=== PATIENT | female | born 1980 | race Caucasian/White ===

== ENCOUNTER → 2018-10-06 07:18 | Outpatient (CLI) | payer BC, SELFPAY ==
--- NOTE | 2018-10-06 07:21 | BI_ITS ---
MAMMOGRAPHY - BILATERAL SCREENING REASON FOR EXAM: Female, 38 years old. Routine annual screening examination. PERTINENT HISTORY: Non-contributory. TECHNIQUE: Digital bilateral breast chapin (3D mammographic acquisition) in the CC and MLO projections. 2-D mediolateral oblique (MLO) and craniocaudad (CC) views of both breasts were obtained. CAD: Full Field Digital Mammography with Computer Added Detection was performed. COMPARISON: None. Baseline examination. FINDINGS: Breast Composition: The breasts are almost entirely fatty. There are no dominant masses or suspicious calcifications. Small bilateral benign appearing axillary lymph nodes. No other significant abnormalities are identified. BI/SCREENING MAMM (CAD), BILAT IMPRESSION: Negative screening mammogram. Yearly followup mammogram recommended. (A) ASSESSMENT CATEGORY: BIRADS Category 2: Benign. A letter regarding these results will be sent to the patient by the facility within 30 days. Approximately 10% of breast cancers are not detected by mammography. A normal mammogram should not delay biopsy of a clinically suspicious abnormality. [id number] Electronically Signed: Jung Benitez, at 9:08 EDT , Service support ,
== END ==
PROVIDERS: Family Provider Family Medicine; PCP Family Medicine; Referring Provider Nurse Practitioner Adult Health; Visit Provider Nurse Practitioner Adult Health
DX: Z12.31 Encounter for screening mammogram for malignant neoplasm of breast (principal)
CPT/HCPCS: 77063; 77067

== ENCOUNTER → 2019-01-04 09:28 | Outpatient (CLI) | payer BC, SELFPAY ==
[2019-01-04 12:16] LABS: Anion Gap 8 (5-15); BUN 15 mg/dL (7-18); BUN/Creat Ratio 20.3 RATIO (10-20); Calcium,Total 8.6 mg/dL (8.5-10.1); Chloride 105 mmol/L (98-107); Creatinine, Serum 0.74 mg/dL (0.55-1.02); EST Glomerular Filtration Rate 92 mL/min (>60); Est Glom Filt Rate - Afr Amer 112 mL/min (>60); Glucose 138 mg/dL (74-106); Potassium 4.8 mmol/L (3.5-5.1); Sodium Level 141 mmol/L (136-145)
== END ==
PROVIDERS: Family Provider Family Medicine; PCP Family Medicine; Referring Provider Family Medicine; Visit Provider Nurse Practitioner Adult Health
DX: E11.9 Type 2 diabetes mellitus without complications (principal)
CPT/HCPCS: 36415; 80048; 83036

== ENCOUNTER → 2019-02-09 | Outpatient (CLI) | payer BC, SELFPAY ==
[2019-02-09 10:40] LABS: Anion Gap 6 (5-15); BUN 13 mg/dL (7-18); BUN/Creat Ratio 16.1 RATIO (10-20); Calcium,Total 8.9 mg/dL (8.5-10.1); Chloride 105 mmol/L (98-107); Cholesterol 197 mg/dL (200); Creatinine, Serum 0.81 mg/dL (0.55-1.02); EST Glomerular Filtration Rate 83 mL/min (>60); Est Glom Filt Rate - Afr Amer 101 mL/min (>60); Glucose 161 mg/dL (74-106); High Density Lipoprotein 37 mg/dL; Potassium 4.9 mmol/L (3.5-5.1); Sodium Level 136 mmol/L (136-145); Triglycerides 151 mg/dL; Very Low Density Lipoprotein 30 mg/dL (5-40)
[2019-02-09 11:24] LABS: Microalbumin,Random Urine < 5.0 mg/L (NO RANGE EST.)
== END | disposition home or self-care (01) ==
LOC: MFPLAB 08:32
PROVIDERS: Family Provider Family Medicine; PCP Family Medicine; Referring Provider Family Medicine; Visit Provider Family Medicine
DX: E11.9 Type 2 diabetes mellitus without complications (principal)
CPT/HCPCS: 36415; 80048; 80061; 82043; 82570

== ENCOUNTER 2020-01-15 08:41 | Emergency (ER) | payer BC, SELFPAY ==
[2020-01-15 08:43] VITALS: BP 143/89; PULSE 79; RESP 16; TEMP 36.1; O2SAT 98; BMI 54.9
--- NOTE | 2020-01-15 09:33 | ED.VIS.BACK ---
History of Present Illness Chief Complaint: Back Informant: Patient Onset: Days Context: Sudden Onset Injury: - - There is no history of lifting, bending, twisting, fall prior to onset of pain. Timing: Continuous Quality: Dull, Aching Location: Lumbar, Buttock Current Severity: Moderate Maximum Severity: Severe Worsened by: improves with: Movement, Ambulation, Bending, Lifting Relieved by: Nothing Associated Symptoms: - - She denies bowel bladder dysfunction. She denies saddle paresthesia or anesthesia. She denies foot drop. She denies buckling of her knee going up the steps into her residence. There is no radicular pain. The pain is located left lower back and left buttocks. Narrative: Patient is a 39-year-old woman who presents with atraumatic acute left back pain. Movement makes the pain worse. There is no neuro vascular symptoms. Patient is in tears. She states she took ibuprofen at 0400. She has not taken Tylenol in several days. She has no known history of back problems. Prior similar symptoms: No Recent Illness/Hospitalization: No - Past Medical History (1) No significant past medical history Status: Acute Past Medical History - Allergies and Home Meds Allergies/Adverse Reactions: Allergies No Known Allergies Allergy (Verified 01/15/20 08:42) Primary Care Physician: Bryan Evans MD [Primary Care Provider] - Prior records reviewed: No - BMI 54.9. Lives: With Family - She states she lives with her parents. Smoking Status: Never smoker Alcohol: None Drugs: None Review of Systems General: Denies: Chills, Fever, Sweats Eyes: Denies: Visual changes - bilaterally, Blurred Vision - bilaterally ENT: Denies: Rhinorrhea, Sore throat Cardiovascular: Denies: Chest pain, Palpitations Respiratory: Denies: Dyspnea, Cough, Dyspnea on exertion Gastrointestinal: Denies: Abdominal pain, Nausea, Vomiting, Diarrhea, Melena, Hematochezia Genitourinary: Denies: Dysuria, Hematuria, Frequency Musculoskeletal: Reports: Back pain. Denies: Myalgias, Arthralgias, Neck pain, Swelling, Extremity Pain Skin: Denies: Rash, Abrasions, Wounds Neurological: Denies: Headache, Weakness, Numbness Endocrine: Denies: Polyuria, Polydipsia Hematologic: Denies: Easy bruising, Easy bleeding Physical Exam Vital Signs/Narrative: Vital Signs Temp Pulse Resp BP Pulse Ox 07/12/20 08:43 96.9 F L 79 16 143/89 H 98 Inital Vital Signs reviewed: Yes General: Well nourished, Well developed, Obese Head: Normocephalic, Atraumatic Eyes: Perrl, EOMI. Negative for: Pale conjunctiva, Scleral icterus ENT: Negative for: Moist mucous membranes, No rhinorrhea Neck: Supple, Nontender. Negative for: No lymphadenopathy, No JVD Cardiovascular: Regular rate, Regular rhythm, No murmurs, Normal S1, Normal S2 Respiratory: No distress, CTA bilaterally, Chest nontender Abdomen: Soft, Nontender, Nondistended, Normal bowel sounds Rectal: Deferred Back: Normal Inspection, Paraspinal Tenderness, Negative SLR - Right, Negative SLR - Left. Negative for: Nontender, Surgical Scar, Well-Healed, Spinal tenderness, CVA tenderness Extremeties: Nontender, No edema, Strong Pulses, Symmetric. Negative for: Tenderness, Edema Skin: Normal color, No rash, No Trauma. Negative for: Cyanosis, Diaphoresis, Jaundice Neuro: Alert, Oriented, Normal Strength, Normal Sensation, Normal DTR, Normal Reflexes, - - EHL is intact bilaterally. Normal sensation. Reflexes: Right Patellar, Right Achilles, Left Patellar, Left Achilles, - - Reflexes 1+ and symmetric.. Negative for: Right Clonus, Right Babinski, Left Clonus, Left Babinski Psychological: Tearful Diagnostic/Tx/Re-eval - Medical Decision Making Suspect musculoskeletal back pain. There is no radicular pain. Negative straight leg test. No neuro logic deficit. Once pain is under better control will observe patient's ambulation, walking on heels and toes and 1 legged squat. Patient was reassessed at 1050. She is able to stand up. She is able to walk. There is no foot drop. She is able to walk on heels and toes. She is able to perform 1 legged squat on the right side and the left side. Patient was observed ambulating from room 9 to the restroom. Patient is no longer crying. Pain has reduced markedly. ED Disposition - Plan for ED Patient: Disposition: Home or Assisted Living Diagnosis: Left-sided low back pain without sciatica Instructions: ED Back Pain Acute or Chronic Prescriptions: Naproxen [Naprosyn] 500 mg PO BID #14 tab Transmission Status: Pending to [id number] Hydrocodone Bitart/Apap 5-325 [[place] 5MG-325MG] 1 tablet PO Q6H PRN PRN 3 Days #10 tablet PRN Reason: Pain Transmission Status: Received by [id number] Referrals: Bryna Evans MD [Primary Care Provider] - As soon as possible
[2020-01-15] MEDS: Ketorolac 15 MG/ML Vial IV (09:41)
[2020-01-15] MEDS: Ondansetron 4 MG/2 ML Vial IV (09:41)
[2020-01-15] MEDS: morphine 8 MG/ML Syringe IV (09:41)
== END 2020-01-15 11:21 | disposition home or self-care (01) ==
PROVIDERS: Emergency Provider Emergency Medicine; PCP Family Medicine
DX: M54.5 Low back pain (principal); E66.9 Obesity, unspecified; Z68.43 Body mass index [BMI] 50.0-59.9, adult
CPT/HCPCS: 96374; 96375; 99282; A4216; J2405

== ENCOUNTER → 2020-01-18 11:43 | Outpatient (CLI) | payer BC, SELFPAY ==
[2020-01-15 08:43] VITALS: BMI 54.9
--- NOTE | 2020-01-18 11:46 | RAD_ITS ---
STUDY: X-RAY - PELVIS AND BILATERAL HIPS REASON FOR EXAM: Female, 39 years old. BILATERAL HIP PAIN, WORSE ON LEFT, NO INJURY TECHNIQUE: AP view of the pelvis.? 2 views of the right hip, and 2 views of the left hip were obtained. COMPARISON: None. FINDINGS: There is a non-specific bowel gas pattern. Normal visualized soft tissue structures. Normal bilateral iliac wings, sacroiliac joints and visualized sacrum. Normal bilateral superior and inferior pubic rami. Normal pubic symphysis. Normal bilateral ischial tuberosities. Normal visualized right femoral head. Normal right acetabulum. Normal right hip joint. Normal visualized left femoral head. Normal left acetabulum. Normal left hip joint. RAD/Hips B/L min 2 views w/ Pelvis IMPRESSION: Normal x-ray examination of the pelvis and bilateral hips. Electronically Signed: Eric Lazo MD at 12:11 EDT , Service support ,
== END ==
PROVIDERS: PCP Family Medicine; Referring Provider Family Medicine; Visit Provider Family Medicine
DX: M25.552 Pain in left hip (principal)
CPT/HCPCS: 73521

== ENCOUNTER → 2020-02-07 07:32 | Outpatient (CLI) | payer BC, SELFPAY ==
[2020-01-15 08:43] VITALS: BMI 54.9
[2020-02-07 10:51] LABS: Anion Gap 4 (5-15); BUN 14 mg/dL (7-18); BUN/Creat Ratio 19.4 RATIO (10-20); Calcium,Total 8.7 mg/dL (8.5-10.1); Chloride 107 mmol/L (98-107); Cholesterol 184 mg/dL (200); Creatinine, Serum 0.72 mg/dL (0.55-1.02); EST Glomerular Filtration Rate 94 mL/min (>60); Est Glom Filt Rate - Afr Amer 114 mL/min (>60); Glucose 124 mg/dL (74-106); High Density Lipoprotein 32 mg/dL; Potassium 4.1 mmol/L (3.5-5.1); Sodium Level 139 mmol/L (136-145); Triglycerides 182 mg/dL; Very Low Density Lipoprotein 36 mg/dL (5-40)
== END ==
PROVIDERS: PCP Family Medicine; Referring Provider Family Medicine; Visit Provider Family Medicine
DX: E11.9 Type 2 diabetes mellitus without complications (principal)
CPT/HCPCS: 36415; 80048; 80061

== ENCOUNTER → 2020-07-30 13:53 | Outpatient (CLI) | payer BC, SELFPAY ==
[2020-08-03 14:23] LABS: HPV Reflexed? NOT INDICATED
== END ==
PROVIDERS: PCP Family Medicine; Visit Provider Nurse Practitioner Adult Health
DX: Z01.419 Encounter for gynecological examination (general) (routine) without abnormal findings (principal)
CPT/HCPCS: 88175; G0145

== ENCOUNTER → 2020-08-08 07:02 | Outpatient (CLI) | payer BC, SELFPAY ==
--- NOTE | 2020-08-08 07:05 | BI_ITS ---
MAMMOGRAPHY - BILATERAL SCREENING REASON FOR EXAM: Female, 39 years old. Routine annual screening examination. PERTINENT HISTORY: Non-contributory. TECHNIQUE: Digital bilateral breast chapin (3D mammographic acquisition) in the CC and MLO projections. 2-D mediolateral oblique (MLO) and craniocaudad (CC) views of both breasts were obtained. CAD: Full Field Digital Mammography with Computer Added Detection was performed. COMPARISON: Comparison is made with prior study dated 10/06/2018. FINDINGS: Breast Composition: The breasts are almost entirely fatty. There are no dominant masses or suspicious calcifications. Stable small benign appearing bilateral axillary lymph nodes. No other significant abnormalities are identified. There has been no significant change since the prior study. BI/SCREENING MAMM (CAD), BILAT IMPRESSION: Stable bilateral screening mammogram. Yearly follow-up mammogram recommended. (A) ASSESSMENT CATEGORY: BIRADS Category 2: Benign. A letter regarding these results will be sent to the patient by the facility within 30 days. Approximately 10% of breast cancers are not detected by mammography. A normal mammogram should not delay biopsy of a clinically suspicious abnormality. [id number] Electronically Signed: Jung Benitez MD at 8:47 EST , Service support ,
== END ==
PROVIDERS: PCP Family Medicine; Referring Provider Nurse Practitioner Adult Health; Visit Provider Nurse Practitioner Adult Health
DX: Z12.31 Encounter for screening mammogram for malignant neoplasm of breast (principal)
CPT/HCPCS: 77067

== ENCOUNTER → 2021-01-10 09:18 | Outpatient (CLI) | payer BC, SELFPAY ==
[2021-01-10 10:28] LABS: Vitamin D,25 Hydroxy 20.2 ng/mL
[2021-01-10 10:30] LABS: Anion Gap 6 (5-15); BUN 13 mg/dL (7-18); BUN/Creat Ratio 17.7 RATIO (10-20); Calcium,Total 9.2 mg/dL (8.5-10.1); Chloride 102 mmol/L (98-107); Cholesterol 129 mg/dL (200); Creatinine, Serum 0.74 mg/dL (0.55-1.02); EST Glomerular Filtration Rate 92 mL/min (>60); Est Glom Filt Rate - Afr Amer 111 mL/min (>60); Glucose 142 mg/dL (74-106); High Density Lipoprotein 38 mg/dL; Potassium 4.4 mmol/L (3.5-5.1); Sodium Level 139 mmol/L (136-145); Thyroid Stim Hormone (TSH) 3.33 uIU/mL (0.358-3.74); Triglycerides 158 mg/dL; Very Low Density Lipoprotein 32 mg/dL (5-40)
[2021-01-10 10:37] LABS: Microalbumin,Random Urine < 5.0 mg/L (NO RANGE EST.)
== END ==
PROVIDERS: PCP Family Medicine; Visit Provider Family Medicine
DX: E11.9 Type 2 diabetes mellitus without complications (principal)
CPT/HCPCS: 36415; 80048; 80061; 82043; 82306; 82570; 84443

== ENCOUNTER → 2021-04-17 09:03 | Outpatient (CLI) | payer BC, SELFPAY | PROVIDERS: PCP Family Medicine; Visit Provider Family Medicine | DX: Z03.818 Encounter for observation for suspected exposure to other biological agents ruled out (principal) | CPT/HCPCS: 87635; U0005; U0003 ==

== ENCOUNTER 2021-08-14 08:36 | Outpatient (CLI) | payer BC, SELFPAY ==
--- NOTE | 2021-08-14 08:38 | BI_ITS ---
MAMMOGRAPHY - BILATERAL SCREENING REASON FOR EXAM: Female, 41 years old. Routine annual screening examination. PERTINENT HISTORY: Non-contributory. TECHNIQUE: Digital bilateral breast charissa (3D mammographic acquisition) in the CC and MLO projections. 2-D mediolateral oblique (MLO) and craniocaudad (CC) views of both breasts were obtained. CAD: Full Field Digital Mammography with Computer Added Detection was performed. COMPARISON: Comparison is made with prior study dated 08/08/2020 and 10/06/2018. FINDINGS: Breast Composition: The breasts are almost entirely fatty. There are no dominant masses or suspicious calcifications. Stable small benign-appearing bilateral axillary lymph nodes. No other significant abnormalities are identified. There has been no significant change since the prior study. BI/SCRN MAMM (CAD)W/CHARISSA BILAT IMPRESSION: Stable bilateral screening mammogram. Yearly follow-up mammogram recommended. (A) ASSESSMENT CATEGORY: BIRADS Category 2: Benign. A letter regarding these results will be sent to the patient by the facility within 30 days. Approximately 10% of breast cancers are not detected by mammography. A normal mammogram should not delay biopsy of a clinically suspicious abnormality. [id number] Electronically Signed: Jung Benitez MD at 10:07 EST ,
== END 2021-08-14 23:59 | disposition home or self-care (01) ==
LOC: OPBI 08:37
PROVIDERS: PCP Family Medicine; Referring Provider Family Medicine; Visit Provider Family Medicine
DX: Z12.31 Encounter for screening mammogram for malignant neoplasm of breast (principal)
CPT/HCPCS: 77063; 77067

== ENCOUNTER → 2022-02-10 | Outpatient (CLI) | payer BC, SELFPAY ==
[2022-02-10 10:32] LABS: Microalbumin,Random Urine 7.4 mg/L (NO RANGE EST.); Microalbumin:Creatinine Ratio 5.1 mg/g CRE (<30 mg/g CRE)
[2022-02-10 10:42] LABS: ALB/GLOB Ratio 0.9 RATIO (0.9-2.4); AST(SGOT) 40 U/L (15-37); Alanine Aminotransfer ALT/SGPT 46 U/L (13-56); Albumin, Serum 3.4 g/dL (3.2-5.0); Alkaline Phosphatase 86 U/L (45-117); Anion Gap 5 (5-15); BUN 13 mg/dL (7-18); BUN/Creat Ratio 18.8 RATIO (10-20); Calcium,Total 9.1 mg/dL (8.5-10.1); Chloride 105 mmol/L (98-107); Creatinine, Serum 0.69 mg/dL (0.55-1.02); EST Glomerular Filtration Rate 99 mL/min (>60); Est Glom Filt Rate - Afr Amer 119 mL/min (>60); Globulin 3.8 g/dL (2.2-4.2); Glucose 176 mg/dL (74-106); Potassium 4.2 mmol/L (3.5-5.1); Protein, Total 7.2 g/dL (6.4-8.2); Sodium Level 137 mmol/L (136-145)
== END | disposition home or self-care (01) ==
LOC: MFPLAB 08:33
PROVIDERS: PCP Family Medicine; Visit Provider Family Medicine
DX: E11.9 Type 2 diabetes mellitus without complications (principal)
CPT/HCPCS: 36415; 80053; 82043; 82570

== ENCOUNTER → 2022-08-15 | Outpatient (CLI) | payer BC, SELFPAY ==
[2022-08-15 13:38] LABS: ALB/GLOB Ratio 0.9 RATIO (0.9-2.4); AST(SGOT) 30 U/L (15-37); Alanine Aminotransfer ALT/SGPT 40 U/L (13-56); Albumin, Serum 3.4 g/dL (3.2-5.0); Alkaline Phosphatase 79 U/L (45-117); Anion Gap 7 (5-15); BUN 14 mg/dL (7-18); BUN/Creat Ratio 21.2 RATIO (10-20); Calcium,Total 9.1 mg/dL (8.5-10.1); Chloride 105 mmol/L (98-107); Cholesterol 116 mg/dL (200); Creatinine, Serum 0.66 mg/dL (0.55-1.02); EST Glomerular Filtration Rate 104 mL/min (>60); Est Glom Filt Rate - Afr Amer 125 mL/min (>60); Globulin 3.7 g/dL (2.2-4.2); Glucose 126 mg/dL (74-106); High Density Lipoprotein 39 mg/dL; Potassium 4.3 mmol/L (3.5-5.1); Protein, Total 7.1 g/dL (6.4-8.2); Sodium Level 139 mmol/L (136-145); Triglycerides 144 mg/dL; Very Low Density Lipoprotein 29 mg/dL (5-40)
== END | disposition home or self-care (01) ==
LOC: MFPLAB 10:25
PROVIDERS: PCP Family Medicine; Referring Provider Family Medicine; Visit Provider Family Medicine
DX: E11.9 Type 2 diabetes mellitus without complications (principal)
CPT/HCPCS: 36415; 80053; 80061

== ENCOUNTER → 2022-08-28 | Outpatient (CLI) | payer BC, SELFPAY ==
--- NOTE | 2022-08-28 07:23 | BI_ITS ---
MAMMOGRAPHY - BILATERAL SCREENING REASON FOR EXAM: Female, 42 years old. Routine annual screening examination. PERTINENT HISTORY: Non-contributory. TECHNIQUE: Digital bilateral breast charissa (3D mammographic acquisition) in the CC and MLO projections. 2-D mediolateral oblique (MLO) and craniocaudad (CC) views of both breasts were obtained. CAD: Full Field Digital Mammography with Computer Added Detection was performed. COMPARISON: Comparison is made with prior examination dated 08/14/2021 and 08/08/2020. FINDINGS: Breast Composition: The breasts are almost entirely fatty. There are no dominant masses or suspicious calcifications. Stable small benign-appearing bilateral axillary lymph nodes. No other significant abnormalities are identified. There has been no significant change since the prior study. BI/SCRN MAMM (CAD)W/CHARISSA BILAT IMPRESSION: Stable bilateral screening mammogram. Yearly follow-up mammogram recommended. (A) ASSESSMENT CATEGORY: BIRADS Category 2: Benign. A letter regarding these results will be sent to the patient by the facility within 30 days. Approximately 10% of breast cancers are not detected by mammography. A normal mammogram should not delay biopsy of a clinically suspicious abnormality. [id number] Electronically Signed: Jung Benitez MD at 9:53 EST ,
== END | disposition home or self-care (01) ==
LOC: OPBI 07:22
PROVIDERS: PCP Family Medicine; Referring Provider Nurse Practitioner Family; Visit Provider Nurse Practitioner Family
DX: Z12.31 Encounter for screening mammogram for malignant neoplasm of breast (principal)
CPT/HCPCS: 77063; 77067

== ENCOUNTER → 2023-02-25 | Outpatient (CLI) | payer OTHER, SELFPAY ==
[2023-02-25 11:01] LABS: Anion Gap 4 (5-15); BUN 14 mg/dL (7-18); BUN/Creat Ratio 19.2 RATIO (10-20); Calcium,Total 8.9 mg/dL (8.5-10.1); Chloride 111 mmol/L (98-107); Cholesterol 119 mg/dL (200); Creatinine, Serum 0.73 mg/dL (0.55-1.02); EST Glomerular Filtration Rate 92 mL/min (>60); Est Glom Filt Rate - Afr Amer 112 mL/min (>60); Glucose 118 mg/dL (74-106); High Density Lipoprotein 36 mg/dL; Potassium 4.2 mmol/L (3.5-5.1); Sodium Level 140 mmol/L (136-145); Triglycerides 143 mg/dL; Very Low Density Lipoprotein 29 mg/dL (5-40)
== END | disposition home or self-care (01) ==
LOC: MFPLAB 08:40
PROVIDERS: PCP Family Medicine; Visit Provider Family Medicine
DX: E11.9 Type 2 diabetes mellitus without complications (principal)
CPT/HCPCS: 36415; 80048; 80061

== ENCOUNTER → 2023-07-15 | Outpatient (CLI) | payer OTHER, SELFPAY ==
--- OUTSIDE RECORDS SUMMARY | 2023-07-15 14:36 | XMS RPT_ITS | CCD ---
Author Name Unknown Address [facility] [address] [place] [id number] Organization [facility] Clinical Note 09-14-2020 Note Date & Type Note Facility 09-14-2020 Note Patient Outreach ([facility]) ANGELY TIMMONS ([id number]) 1980 F Date Time Provider Department 09/14/20 KYLIE RUIZ During your visit today, we recorded the following information about you: Allergies As of Date: 09/14/2020 (No Known Allergies) Date Reviewed: 01/15/2020 Reviewed by: Barbara Stuart Ma - Fully Assessed Order(s):SARS-COVID VACCINE 1ST DOSE APPT [[id number]] Order #: [id number] FUTURE Prescriptions as of 09/14/2020 Sig: METFORMIN 1,000 MG TABLET Take 1,000 mg by mouth twice * GLIMEPIRIDE 1 MG TABLET Take 1 mg by mouth once daily. ONETOUCH ULTRA BLUE TEST STRIP ONETOUCH ULTRA2 METER KIT LISINOPRIL 5 MG TABLET Take 1 tablet by mouth once d* ONETOUCH DELICA LANCETS 30 GA* twice daily. METFORMIN 500 MG TABLET Take 1 tablet by mouth twice * JANUMET XR 100 MG-1,000 MG TA* Take 1 tablet by mouth once d* BROMPHENIRAMINE-PSEUDOEPHEDRI* Take 5 mL by mouth three time* Patient not taking: Reported on 01/15/2020 Problem List As Of Date 09/14/2020 Noted Resolved Type 2 diabetes mellitus without complication, *11/09/2018 Encounter Status:Closed by RICKY FISH on 09/17/20 [facility] Summary Purpose Family History No Family History Records Found Advance Directives No Advanced Directives Records Found Additional Source Comments INFORMATION SOURCE (unrecogn ized section and content) FOR RECORDS PERTAINING TO PATIENTS WHO ARE OR HAVE BEEN ENROLLED IN A CHEMICAL DEPENDENCY/SUBSTANCEABUSE PROGRAM, SOME INFORMATION MAY BE OMITTED. This clinical summary was aggregated from multiple sources. Caution should be exercised in using it in the provision of clinical care. This summary normalizes information from multiple sources, and as a consequence, information in this document may materially change the coding, format and clinical context of patient data. In addition, data may be omitted in some cases. CLINICAL DECISIONS SHOULD BE BASED ON THE PRIMARY CLINICAL RECORDS. [employer] [facility]. provides no warranty or guarantee of the accuracy or completeness of information in this document.
[2023-07-20 19:08] LABS: HPV APTIMA, High Risk Negative (Negative)
[2023-07-20 20:03] LABS: HPV Reflexed? YES, CHARGE PATIENT
== END | disposition home or self-care (01) ==
LOC: LABSPEC 14:11
PROVIDERS: PCP Family Medicine; Visit Provider Nurse Practitioner Family
DX: Z00.00 Encounter for general adult medical examination without abnormal findings (principal)
CPT/HCPCS: 87624; 88175; G0145

== ENCOUNTER → 2023-08-12 | Outpatient (CLI) | payer OTHER, SELFPAY ==
[2023-08-12 11:36] LABS: Anion Gap 3 (5-15); BUN 14 mg/dL (7-18); BUN/Creat Ratio 17.5 RATIO (10-20); Calcium,Total 8.8 mg/dL (8.5-10.1); Chloride 110 mmol/L (98-107); Cholesterol 130 mg/dL (200); EST Glomerular Filtration Rate 82 mL/min (>60); Est Glom Filt Rate - Afr Amer 100 mL/min (>60); Glucose 116 mg/dL (74-106); High Density Lipoprotein 39 mg/dL; Potassium 4.4 mmol/L (3.5-5.1); Sodium Level 136 mmol/L (136-145); Triglycerides 125 mg/dL; Very Low Density Lipoprotein 25 mg/dL (5-40)
[2023-08-12 12:12] LABS: Microalbumin,Random Urine < 5.0 mg/L (NO RANGE EST.)
== END | disposition home or self-care (01) ==
LOC: MFPLAB 08:23
PROVIDERS: PCP Family Medicine; Visit Provider Family Medicine
DX: E11.9 Type 2 diabetes mellitus without complications (principal)
CPT/HCPCS: 36415; 80048; 80061; 82043; 82570

== ENCOUNTER → 2023-08-17 | Outpatient (CLI) | payer OTHER, SELFPAY ==
--- OUTSIDE RECORDS SUMMARY | 2023-08-17 07:54 | XMS RPT_ITS | CCD ---
Author Name Unknown Address [facility] [employer] [facility] [address] [place] [id number] Organization [facility] Clinical Note 09-14-2020 Note Date & Type Note Facility 09-14-2020 Note Patient Outreach ([facility]) ANGELY TIMMONS ([id number]) 1980 F Date Time Provider Department 09/14/20 KYLIE RUIZ During your visit today, we recorded the following information about you: Allergies As of Date: 09/14/2020 (No Known Allergies) Date Reviewed: 01/15/2020 Reviewed by: Barbara Stuart Ma - Fully Assessed Order(s):SARS-COVID VACCINE 1ST DOSE APPT [[id number]] Order #: [id number] FUTURE Prescriptions as of 09/14/2020 Sig: METFORMIN [...] Encounter Status:Closed by RICKY FISH on 09/17/20 [facility] Summary Purpose Family History No Family History [...] BE BASED ON THE PRIMARY CLINICAL RECORDS. [employer] [facility]. provides no warranty or guarantee of the accuracy or completeness of information in this document.
--- NOTE | 2023-08-17 07:57 | US_ITS ---
STUDY: ULTRASOUND OF THE FEMALE PELVIS - COMPLETE REASON FOR EXAM: Female, 43 years old. Cervical polyp LMP: April 24, 2024 TECHNIQUE: Transabdominal and Transvaginal TECHNICAL QUALITY: Adequate. COMPARISON: None. FINDINGS: The uterus is anteverted and is in a midline position. The uterus measures 8.1 cm x 3.8 cm x 3.5 cm. Normal uterine cervix. The endometrium measures 8.9 mm in thickness, and is heterogeneous (striated). I suspect an 8 mm x 9 mm x 8 mm cervical polyp. There is no demonstrated endometrial mass. There is no demonstrated myometrial mass. I.U.D. - The patient does not have an I.U.D. The right ovary is non-visualized. The left ovary is non-visualized. There is no fluid in the cul-de-sac. The pre void volume of the bladder was 86 ml. US/Transvaginal Non- IMPRESSION: Findings suggestive of a 8 mm x 9 mm x 8 mm cervical polyp. Electronically Signed: Jung Benitez MD at 12:14 EST ,
== END | disposition home or self-care (01) ==
PROVIDERS: PCP Family Medicine; Referring Provider Obstetrics & Gynecology; Visit Provider Obstetrics & Gynecology
DX: N84.1 Polyp of cervix uteri (principal)
CPT/HCPCS: 76830; 76856

== ENCOUNTER → 2023-08-31 | Outpatient (CLI) | payer OTHER, SELFPAY ==
--- NOTE | 2023-08-31 07:06 | BI_ITS ---
MAMMOGRAPHY - BILATERAL SCREENING REASON FOR EXAM: Female, 43 years old. Routine annual screening examination. PERTINENT HISTORY: Non-contributory. Initial remote right breast aspiration. TECHNIQUE: Digital bilateral breast charissa (3D mammographic acquisition) in the CC and MLO projections. 2-D mediolateral oblique (MLO) and craniocaudad (CC) views of both breasts were obtained. CAD: Full Field Digital Mammography with Computer Added Detection was performed. COMPARISON: Comparison is made with prior study August 28, 2022 and August 14, 2021. FINDINGS: Breast Composition: The breasts are almost entirely fatty. There are no dominant masses or suspicious calcifications. Stable small benign-appearing bilateral axillary lymph nodes. No other significant abnormalities are identified. There has been no significant change since the prior study. BI/SCRN MAMM (CAD)W/CHARISSA BILAT IMPRESSION: Stable bilateral screening mammogram. Yearly follow-up mammogram recommended. (A) ASSESSMENT CATEGORY: BIRADS Category 2: Benign. A letter regarding these results will be sent to the patient by the facility within 30 days. Approximately 10% of breast cancers are not detected by mammography. A normal mammogram should not delay biopsy of a clinically suspicious abnormality. [id number] Electronically Signed: Jung Benitez MD at 8:56 EST ,
--- OUTSIDE RECORDS SUMMARY | 2023-08-31 07:22 | XMS RPT_ITS | CCD ---
Author Name Unknown Address [facility] [employer] [facility] [address] [place] [id number] Organization [facility] Clinical Note 09-14-2020 Note Date & Type Note Facility 09-14-2020 Note Patient Outreach ([facility]) ANGELY TIMMONS ([id number]) 1980 F Date Time Provider Department 09/14/20 KYLIE RUIZ During your visit today, we recorded the following information about you: Allergies As of Date: 09/14/2020 (No Known Allergies) Date Reviewed: 01/15/2020 Reviewed by: Barbara Stuart Ma - Fully Assessed Order(s):SARS-COVID VACCINE 1ST DOSE APPT [[id number]] Order #: [id number] FUTURE Prescriptions as of 09/14/2020 Sig: METFORMIN [...] Encounter Status:Closed by RICKY FISH on 09/17/20 [facility] Summary Purpose Family History No Family History [...] BE BASED ON THE PRIMARY CLINICAL RECORDS. [employer] [facility]. provides no warranty or guarantee of the accuracy or completeness of information in this document.
== END | disposition home or self-care (01) ==
LOC: OPBI 07:06
PROVIDERS: PCP Family Medicine; Referring Provider Nurse Practitioner Family; Visit Provider Nurse Practitioner Family
DX: Z12.31 Encounter for screening mammogram for malignant neoplasm of breast (principal)
CPT/HCPCS: 77063; 77067

== ENCOUNTER 2023-09-01 07:09 | Day surgery (SDC) | payer OTHER, SELFPAY ==
[2023-08-24 15:32] LABS: Hematocrit 41.4 % (37-47); Hemoglobin 13.5 g/dL (12.0-15.0); Mean Corp Hgb Conc 32.6 g/dL (32-36); Mean Corpuscular Hgb 28.5 pg (27.0-32.0); Mean Corpuscular Volume 87.5 fL (81-99); Platelet Count 255 K/mm3 (150-450); RBC Distribution Width CV 13.3 % (11.6-14.6); RBC Distribution Width SD 42.5 fl (35.1-43.9); Red Blood Count 4.73 M/mm3 (4.2-5.4); White Blood Count 9.6 K/mm3 (4.4-11.0)
--- OUTSIDE RECORDS SUMMARY | 2023-09-01 07:23 | XMS RPT_ITS | CCD ---
Author Name Unknown Address [facility] [employer] [facility] [address] [place] [id number] Organization [facility] Clinical Note 09-14-2020 Note Date & Type Note Facility 09-14-2020 Note Patient Outreach ([facility]) ANGELY TIMMONS ([id number]) 1980 F Date Time Provider Department 09/14/20 KYLIE RUIZ During your visit today, we recorded the following information about you: Allergies As of Date: 09/14/2020 (No Known Allergies) Date Reviewed: 01/15/2020 Reviewed by: Barbara Stuart Ma - Fully Assessed Order(s):SARS-COVID VACCINE 1ST DOSE APPT [[id number]] Order #: [id number] FUTURE Prescriptions as of 09/14/2020 Sig: METFORMIN [...] Encounter Status:Closed by RICKY FISH on 09/17/20 [facility] Summary Purpose Family History No Family [...] BE BASED ON THE PRIMARY CLINICAL RECORDS. [employer] [facility]. provides no warranty or guarantee of the accuracy or completeness of information in this document.
--- NOTE | 2023-09-01 07:26 | PCM.HP.BLA ---
History and Physical Date of Admission: 09/01/23 Intake Vital Signs 01/15/2008:43 08/10/2409:37 Height 5 ft 4 in 5 ft 4 in Weight: 316 lb 6 oz BMI 54.3 BP 148/82 H Intake Visit Reasons: polyp options, ref by [facility] [employer] Required: No Is patient in pain?: No Allergies No Known Allergies Allergy (Verified 08/10/23 10:49) Medications glimepiride 1 mg tablet 1 mg PO DAILY 01/15/20 [History Confirmed 08/10/23] lisinopril 5 mg tablet 5 mg PO DAILY 01/15/20 [History Confirmed 08/10/23] naproxen 500 mg tablet 500 mg PO BID #14 tabs 01/15/20 [Rx Confirmed 08/10/23] cholecalciferol (vitamin D3) 50 mcg (2,000 unit) capsule 50 mcg PO DAILY 08/10/23 [History Confirmed 08/10/23] metformin 1,000 mg tablet 1,000 mg PO DAILY 08/10/23 [History Confirmed 08/10/23] rosuvastatin 5 mg tablet (Crestor) 5 mg PO DAILY 08/10/23 [History Confirmed 08/10/23] Post menopausal: No Patient : No : No [facility] Medical History (Updated 08/10/23 @ 17:[address] Wendy Keating DO) Chronic back pain Diabetes Hyperlipidemia Hypertension Surgical History (Updated 08/10/23 @ 10:52 by Yolanda Srinivasan) History of ankle surgery Family History (Updated 08/10/23 @ 10:53 by Yolanda Srinivasan) Father Heart disease CVA (cerebral vascular accident)Mother Diabetes Thyroid disorder Uterine cancer Social History (Updated 08/10/23 @ 10:53 by Yolanda Srinivasan) Smoking Status: Never smoker alcohol intake: never substance use type: does not use caffeine: Yes what type of physical activity do you participate in: walking frequency: 3-4 times per week seatbelt use: always do you feel safe at home: Yes additional social history: Single HPI polyp options, ref by [facility] Details: ANGELY TIMMONS is a 42 year old who presents to [facility] for a polyp that was found incidentally by her pcp on her cx. pap was benign. She denies abnormal periods (more than usual) her mom from uterine cancer, likely uterine sarcoma based on her description. She states that she will find out for sure. Today she is scheduled for hysteroscopy D&C with polypectomy. History 0 Elective abortions Hx Para Spontaneous abortions Hx # Term Pregnancies Ectopic pregnancies Hx # Pregnancies Multiple births # of living children ROS Const ROS Unobtainable: All systems reviewed & are unremarkable except as noted in H Resp Resp: Reports system reviewed and no additional complaints, except as documented; Denies cough GI GI: Reports as per HPI Psych Psych: Reports system reviewed and no additional complaints, except as documented Exam Const General: cooperative, healthy appearing, comfortable and no acute distress Resp Effort & Inspection: normal respiratory effort General: bimanual renal exam normal bilaterally External Female Exam: normal appearance of the urethra Urethra: normal appearance of the urethra Speculum Exam - Vagina: normal appearance of the vagina Speculum Exam - Cervix: normal appearance of the cervix Bimanual Exam- Adnexa, other: normal adnexae and normal Pelvic Support: normal Speculum Exam: other (small endocervical polyp protruding from cervix. ) Skin General: no rashes or lesions noted Psych Appearance: grossly normal Speech and Movement: speech and movement normal Coding Level of Care Code Off vis,new,level 4 Diagnoses Polyp of cervix N84.1 Assessment and Plan Assessment and Plan (1) Polyp of cervix: Status: Acute Plan: plan for hysteroscopy D&C polypectomy. After discussing the patient's diagnosis and treatment plan options, patient wishes to proceed with surgical management. I have discussed with the patient the risks, benefits, and alternatives of the procedure which include but are not limited to risks of anesthesia, bleeding, infection, possible damage to bowel, bladder, or surrounding vasculature which could lead to additional surgery to evaluate any complications. Patient agrees to procedure and wishes to proceed. ACOG/uptodate references given for additional information regarding procedure.
[2023-09-01 07:38] VITALS: BP 129/79; PULSE 106; RESP 16; TEMP 37; O2SAT 100; BMI 52.4
[2023-09-01] MEDS: Lactated Ringers 1,000 ML 15 ML IV (07:44)
[2023-09-01 07:47] LABS: Internal QC Validated? YES +Cl - CLEAR BKGD; Pregnancy, Urine Negative Negative
[2023-09-01 08:10] LABS: Bedside Glucose 122 mg/dL (74-106)
--- NOTE | 2023-09-01 08:27 | DCINST_ITS ---
Discharge Instructions Diet Discharge Diet: No restrictions Activity Discharge Activity: Return to Normal Activity, May Shower and May Take a Tub Bath (after 1 week) May resume sexual activity in: 1-2 weeks Weight Bearing Status: Weight bearing as tolerated Lifting Restrictions: none Additional Activity Instructions:: take over the counter Motrin, aleve, and or tylenol as needed for cramping. Dressing / Incision Call your doctor if you observe: Fever of 101 or Higher, Using more than 1 pad per hour, Shortness of breath and Uncontrolled pain Follow Up Care Please Follow Up With: Wendy Keating DO When: Call [phone] to schedule appointment. Test Results: Test results from this visit will be discussed in further detail at your follow- up appointment. Discharge Plan Admission Attending Provider: Wendy Keating Primary Care Provider: Bryan Evans Discharge Orders/Prescriptions Prescriptions: No Action cholecalciferol (vitamin D3) 50 mcg (2,000 unit) capsule 50 mcg PO QHS rosuvastatin [Crestor] 5 mg tablet 5 mg PO QHS glimepiride 1 MG tablet 1 mg PO QHS lisinopril 5 MG tablet 5 mg PO QHS naproxen 500 MG tablet 500 mg PO BID Qty: 14 0RF metformin 1,000 mg tablet 1,000 mg PO QHS Qsymia 15-92 mg capsule, ER multiphase 24 hr 1 cap PO Q24H Patient Comments: TAKE 1 CAPSULE BY MOUTH ONCE DAILY doxycycline hyclate 100 mg capsule 100 mg PO Q12H Referrals / Follow Up: Bryan Evans MD [Primary Care Provider] - Disposition Disposition (needs filled in before D/C Order can be placed): Home, Self Care
--- NOTE | 2023-09-01 08:50 | EMB_PTH ---
PATHOLOGY RESULTS PATIENT: ANGELY TIMMONS LOC: [facility] – [place] U#:[id number] AGE/SX: 43/F ROOM: RE09/01/[address]: Dr. Wendy Keating DO : 1980 BED: DIS: 09/01/2023 SPEC #: [id number] RECD: 09/01/23 10:55 STATUS: MIRIAM PIERSON #: [id number] DASHAWN: 09/01/23 08:[address]: Wendy Keating DEPT: SURGICAL PATHOLOGY RECD BY: Barbara Barron ENTERED: 09/01/23 10:56 SP TYPE: ENDOM BX/C OTHR DR: Dr. Bryan Evans MD Tissues: Endometrium, NOS POLYP Procedures: Surgery Specimen Level IV HEADER OPERATION: Hysteroscopy, D & C Symphion, polypectomy PRE-OP DIAGNOSIS: Polyp of cervix TISSUE SUBMITTED: A - Endometrial curettings, B - Cervical polyp MICROSCOPIC DIAGNOSIS A. Endometrial curettings: Simple and complex endometrial hyperplasia without atypia and with superimposed secretory changes. See comment. B. Cervical polyp, polypectomy: Endometrial polyp with simple endometrial hyperplasia without atypia. SJ:rg 09/02/2023 COMMENT A. A few fragments of endometrial polyp are also noted. Case has been reviewed in consultation with Dr. Kaplan who concurs with the above diagnosis. IDC:AM MICROSCOPIC DESCRIPTION Slides are reviewed. GROSS DESCRIPTION A - Received in fixative is one container labeled with the patient's name and designated endometrial curettings. The specimen consists of multiple irregular fragments of hernandez soft tissue that in aggregate measure 5.0 x 3.0 x 0.3 cm. The entire specimen is submitted in two cassettes. B - Received in fixative is one container labeled with the patient's name and designated cervical polyp. The specimen consists of a hernandez-pink polyp measuring 3.5 x 1.0 x 0.5 cm. The polyp is bisected. Also present in the container are multiple fragments of hernandez-pink soft tissue measuring in aggregate 2.5 x 0.5 x 0.1 cm. The entire specimen is submitted in one cassette. / KRISTI:olga lidia 09/01/2023 TC:5 CPT: 44424 x2
--- NOTE | 2023-09-01 09:09 | OP.PCM_ITS ---
Problems Associated Problem List Diagnoses (1) Polyp of cervix: Report of Operation Date of Procedure: 09/01/23 Pre-Operative Diagnosis: 43 years old, large cervical polyp, menorrhagia Post-Operative Diagnosis: 43 years old, large cervical polyp, menorrhagia Surgery/Procedure Performed:: hysteroscopy dilation and curettage and cervical polypectomy Description of Surgical Findings:: large cervical polyp, thick endometrial tissue Surgeon: Wendy Keating pediatric nephrologist: None Type of Anesthesia: MAC Specimen's removed: endometrial curetting's and cervical polyp Estimated Blood Loss (mL): 10cc Description of Procedure: Patient was prepped and draped in a normal sterile fashion under MAC anesthesia. A weighted speculum was placed in the vagina and the anterior lip of the cervix was grasped with a single-tooth tenaculum. The uterus was sounded to 9 cm. The large cervical polyp was grasped with polyp forceps and gently removed. The Cervix was progressively dilated to allow passage of a 5 mm hysteroscope. The lining was fully visualized and noted to have thickened tissue . Curettage was performed with the symphion device and the specimen was sent to pathology. All instruments were removed from the vagina and excellent hemostasis was noted. Patient was awoken and taken to recovery in stable condition. Procedure Start Time: 08:59 Procedure Stop Time: 09:07 Complications none Admit VTE Documentation VTE Present on Admission: No VTE Mechan Device Prophylaxis: SCD's VTE Pharm Prophylaxis ordered?: No Multi Select Codes Urinary/Genital Urinary/Genital CPT Codes: 59027 Hysteroscopy,EMC, Polypectomy
[2023-09-01 09:17] VITALS: BP 113/71; BP 129/79; PULSE 93; RESP 16; TEMP 36.1; O2SAT 100
[2023-09-01 09:20] VITALS: BP 112/79; BP 129/79; PULSE 88; RESP 16; O2SAT 98
[2023-09-01 09:25] VITALS: BP 113/81; BP 129/79; PULSE 84; RESP 16; O2SAT 100
[2023-09-01 09:30] VITALS: BP 104/67; BP 129/79; PULSE 79; RESP 16; TEMP 36; O2SAT 100
[2023-09-01 09:54] VITALS: BP 129/79
== END 2023-09-01 10:00 | disposition home or self-care (01) ==
LOC: SDC 07:14 → AC 07:20
PROVIDERS: PCP Family Medicine; Referring Provider Obstetrics & Gynecology; Visit Provider Obstetrics & Gynecology
PROC: 0UB98ZZ Excision of Uterus, Via Natural or Artificial Opening Endoscopic (ICD-10-PCS; CPT 58558; principal; 2023-09-01 08:35)
DX: N85.01 Benign endometrial hyperplasia (principal); E11.9 Type 2 diabetes mellitus without complications; N84.1 Polyp of cervix uteri; N92.0 Excessive and frequent menstruation with regular cycle; E78.5 Hyperlipidemia, unspecified; I10 Essential (primary) hypertension; G89.29 Other chronic pain; M54.9 Dorsalgia, unspecified; Z79.84 Long term (current) use of oral hypoglycemic drugs
CPT/HCPCS: 58558; 00952; 36415; 81025; 82962; 85027; 86850; 86900; 86901; 88305; J7120; J2405

== ENCOUNTER 2023-10-16 05:33 | Day surgery (SDC) | payer OTHER, SELFPAY ==
[2023-10-09 08:51] LABS: AST(SGOT) 14 U/L (15-37); Alanine Aminotransfer ALT/SGPT 22 U/L (13-56); Albumin, Serum 3.7 g/dL (3.2-5.0); Alkaline Phosphatase 79 U/L (45-117); Anion Gap 4 (5-15); BUN 17 mg/dL (7-18); BUN/Creat Ratio 20.2 RATIO (10-20); Calcium,Total 9.2 mg/dL (8.5-10.1); Chloride 113 mmol/L (98-107); Creatinine, Serum 0.84 mg/dL (0.55-1.02); EST Glomerular Filtration Rate 78 mL/min (>60); Est Glom Filt Rate - Afr Amer 94 mL/min (>60); Globulin 3.7 g/dL (2.2-4.2); Glucose 148 mg/dL (74-106); Potassium 4.4 mmol/L (3.5-5.1); Protein, Total 7.4 g/dL (6.4-8.2); Sodium Level 139 mmol/L (136-145)
[2023-10-09 08:52] LABS: Magnesium 2.2 mg/dL (1.6-2.6)
[2023-10-09 09:13] LABS: Hemoglobin A1c 5.8 % (3.8-5.6)
[2023-10-16 06:06] LABS: Internal QC Validated? YES +Cl - CLEAR BKGD; Pregnancy, Urine Negative Negative
[2023-10-16] MEDS: dexAMETHasone 4 MG/ML Vial 8 MG IV (06:18)
[2023-10-16] MEDS: Celecoxib 200 MG Capsule 400 MG PO (06:21)
[2023-10-16] MEDS: Acetaminophen 500 MG Tablet 1000 MG PO (06:21)
[2023-10-16] MEDS: Gabapentin 600 MG Tablet PO (06:21)
[2023-10-16] MEDS: Phenazopyridine 95 MG Tablet 190 MG PO (06:21)
[2023-10-16] MEDS: Scopolamine 1mg/72hr Patch 1 PATCH TD (06:21)
[2023-10-16] MEDS: Lactated Ringers 1,000 ML 40 ML IV (06:22)
[2023-10-16] MEDS: Insulin Lispro 100 UNIT/ML INSULN.PEN SC (06:22)
[2023-10-16] MEDS: Magnesium 1 GM over 15 mins IV (06:22)
[2023-10-16 06:28] VITALS: BP 132/52; PULSE 100; RESP 16; TEMP 36.6; O2SAT 100; BMI 51.8
[2023-10-16 06:59] LABS: Bedside Glucose 205 mg/dL (74-106)
--- NOTE | 2023-10-16 07:12 | DCINST_ITS ---
Discharge Instructions Diet Discharge Diet: No restrictions Activity May resume sexual activity in: 6 weeks Weight Bearing Status: Full weight bearing Dressing / Incision Call your doctor if your incision/area has: Continuous Slow Oozing, Sudden Increased Bleeding, Increased Pain/ Swelling, Increased Redness and Foul Smelling Discharge Call your doctor if you observe: Fever of 101 or Higher, Using more than 1 pad per hour, Shortness of breath, Chest pain and Uncontrolled pain Suture Line Care: Avoid Pulling/Pushing and Avoid Pinching/Bending Remove Dressing in: 1 week (if present) Cleanse incision/area with: Soap & Water and Keep Dressing Clean & Dry Follow Up Care Please Follow Up With: Wendy Keating DO When: Call to make an appointment with your doctor for a postop visit in 2 and 6 weeks Test Results: Test results from this visit will be discussed in further detail at your follow- up appointment, if applicable. Discharge Plan Admission Primary Reason for Your Visit: hysterectomy Attending Provider: Wendy Keating Primary Care Provider: Bryan Evans Consulting Providers: Yann Galaviz Discharge Orders/Prescriptions Prescriptions: New ibuprofen 800 mg tablet 800 mg PO Q8H PRN (Reason: pain) Qty: 30 0RF oxycodone-acetaminophen [Percocet] 5-325 mg tablet 1 tab PO Q4H PRN (Reason: pain) 7 Days Qty: 20 0RF Rx Instructions: 1-2 tabs q 4 hrs as needed for pain Continued cholecalciferol (vitamin D3) 50 mcg (2,000 unit) capsule 50 mcg PO QHS rosuvastatin [Crestor] 5 mg tablet 5 mg PO QHS glimepiride 1 MG tablet 1 mg PO QHS lisinopril 5 MG tablet 5 mg PO QHS naproxen 500 MG tablet 500 mg PO BID Qty: 14 0RF metformin 1,000 mg tablet 1,000 mg PO QHS Qsymia 15-92 mg capsule, ER multiphase 24 hr 1 cap PO DAILY Patient Comments: TAKE 1 CAPSULE BY MOUTH ONCE DAILY Referrals / Follow Up: Bryan Evans MD [Primary Care Provider] - Disposition Disposition (needs filled in before D/C Order can be placed): Home, Self Care
--- NOTE | 2023-10-16 07:12 | PCM.HP.BLA ---
History and Physical Date of Admission: 10/16/23 Intake Vital Signs 09/13/2412:42 10/04/2414:07 10/04/2414:09 Height 5 ft 5 in 5 ft 5 in 5 ft 5 in Weight: 314 lb 6 oz 315 lb BMI 52.3 52.4 BP 147/94 H 177/93 H Intake Visit Reasons: TRHBS cysto Recreation Program Specialist Required: No Is patient in pain?: No Allergies No Known Allergies Allergy (Verified 10/05/23 15:07) Medications glimepiride 1 mg tablet 1 mg PO QHS 01/15/20 [History Confirmed 10/05/23] lisinopril 5 mg tablet 5 mg PO QHS 01/15/20 [History Confirmed 10/05/23] naproxen 500 mg tablet 500 mg PO BID #14 tabs 01/15/20 [Rx Confirmed 10/05/23] cholecalciferol (vitamin D3) 50 mcg (2,000 unit) capsule 50 mcg PO QHS supplement 08/10/23 [History Confirmed 10/05/23] metformin 1,000 mg tablet 1,000 mg PO QHS 08/10/23 [History Confirmed 10/05/23] rosuvastatin 5 mg tablet (Crestor) 5 mg PO QHS 08/10/23 [History Confirmed 10/05/23] phentermine 15 mg-topiramate ER 92 mg capsule,[id number] multphas (Qsymia) 1 cap PO Q24H diabetes 08/21/23 [History Confirmed 10/05/23] medroxyprogesterone 10 mg tablet 10 mg PO DAILY #30 tabs 09/04/23 [Rx Confirmed 10/05/23] Is last menstrual period known: No Post menopausal: No Patient : No : No PFSH Medical History Arthritis Chronic back pain Diabetes Dietary restriction Easy bruising Hyperlipidemia Hypertension Leg cramps Non-smoker Polyp of cervix Shortness of breath on exertion Skin tear Wears glasses Surgical History H/O dilation and curettage History of ankle surgery Status post hysteroscopy (~09/01/23) Family History Father Heart disease CVA (cerebral vascular accident)Mother Diabetes Thyroid disorder Uterine cancer Social History Smoking Status: Never smoker alcohol intake: never substance use type: does not use caffeine: Yes what type of physical activity do you participate in: walking frequency: 3-4 times per week seatbelt use: always do you feel safe at home: Yes additional social history: Single HPI TRHBS cysto Details: ANGELY TIMMONS is a 43 year old G0 who presents for a pre-op exam. She was found to have a polyp in the uterus that came back posititive for complex endometrial hyperplasia without atypia. After discussion, the decision was made to proceed with a hysterectomy. ultrasound was as follows: FINDINGS: The uterus is anteverted and is in a midline position. The uterus measures 8.1 cm x 3.8 cm x 3.5 cm. Normal uterine cervix. The endometrium measures 8.9 mm in thickness, and is heterogeneous (striated). I suspect an 8 mm x 9 mm x 8 mm cervical polyp. There is no demonstrated endometrial mass. There is no demonstrated myometrial mass. I.U.D. - The patient does not have an I.U.D. The right ovary is non-visualized. The left ovary is non-visualized. There is no fluid in the cul-de-sac. The pre void volume of the bladder was 86 ml. US/Transvaginal Non- IMPRESSION: Findings suggestive of a 8 mm x 9 mm x 8 mm cervical polyp. History 0 Elective abortions Hx Para Spontaneous abortions Hx # Term Pregnancies Ectopic pregnancies Hx # Pregnancies Multiple births # of living children ROS Const ROS Unobtainable: All systems reviewed & are unremarkable except as noted in H Resp Resp: Reports system reviewed and no additional complaints, except as documented; Denies cough GI GI: Reports as per HPI Psych Psych: Reports system reviewed and no additional complaints, except as documented Exam Const General: cooperative, healthy appearing, comfortable and no acute distress Resp Effort & Inspection: normal respiratory effort Skin General: no rashes or lesions noted Psych Appearance: grossly normal Speech and Movement: speech and movement normal Coding Level of Care Code Off vis,est,level 4 Diagnoses Complex endometrial hyperplasia without atypia N85.01 Assessment and Plan Assessment and Plan (1) Complex endometrial hyperplasia without atypia: Status: Acute Plan: After discussing the patient's diagnosis and treatment plan options, patient wishes to proceed with surgical management. I have discussed with the patient the risks, benefits, and alternatives of the procedure which include but are not limited to risks of anesthesia, bleeding, infection, possible damage to bowel, bladder, or surrounding vasculature which could lead to additional surgery to evaluate any complications. Patient agrees to procedure and wishes to proceed. ACOG/uptodate references given for additional information regarding procedure. plan is for total robotic hysterectomy, bilateral salpingectomy, cystoscopy.
[2023-10-16] MEDS: Cefazolin 2 GM in 0.9% Normal Saline (100mL Bag) 100 ML IV (07:25)
--- NOTE | 2023-10-16 07:30 | HYST_PTH ---
PATIENT: ANGELY TIMMONS LOC: [facility] – [place] U#:[id number] AGE/SX: 43/F ROOM: RE10/16/[address]: Dr. Wendy Keating DO : 1980 BED: DIS: 10/16/2023 SPEC #: [id number] RECD: 10/16/23 13:30 STATUS: MIRIAM MONTANODavidson #: [id number] DASHAWN: 10/16/23 07:[address]: Wendy Keating DEPT: SURGICAL PATHOLOGY RECD BY: Elaine Courtney ENTERED: 10/16/23 14:25 SP TYPE: HYSTERECT OTHR DR: MD Dr. Bryan Foley MD Tissues: Uterus, NOS Procedures: Surgery Specimen Level V HEADER OPERATION: ERAS, Laparoscopic robotic hysterectomy julita salping, cystoscopy PRE-OP DIAGNOSIS: Complex endometrial hyperplasia TISSUE SUBMITTED: Cervix, bilateral fallopian tubes, uterus MICROSCOPIC DIAGNOSIS Cervix, uterus, bilateral fallopian tubes, hysterectomy and bilateral salpingectomy: Cervix - Chronic cystic cervicitis. - Leiomyomas (largest measuring 0.6 cm in greatest dimension) Endometrium - Complex endometrial hyperplasia without atypia. Myometrium - Focal adenomyosis. Right fallopian tube- no pathologic diagnosis. Left fallopian tube- Adenofibroma (0.4 cm in greatest dimension). KRISTI/ 10/19/23 COMMENT Please make reference to previous specimen [id number] endometrial Curettings with diagnosis of simple and complex endometrial hyperplasia without atypia and with superimposed secretory changes and cervical polyp, polypectomy diagnosis of endometrial polyp with simple endometrial hyperplasia without atypia. Case has been reviewed in consultation with Dr. Kaplan who concurs with the above diagnosis. IDC:AM MICROSCOPIC DESCRIPTION Slides are reviewed. GROSS DESCRIPTION Received in fixative is one container labeled with the patient's name and designated uterus. The specimen consists of a hysterectomy specimen consisting of Bilateral fallopian tubes and uterus. The uterus with cervix and weighs 60 gm and measures 7.5 x 5.0 x 3.5 cm. The serosal surface is hernandez glistening. The ectocervical mucosa is unremarkable. The external os is circular in contour. The endocervical canal measures 2.5 cm in length and the endocervical mucosa is hernandez glistening and unremarkable. The triangular endometrial cavity measures 3.5 cm in length and up to 2.0 cm in width. The endometrium is hernandez, glistening without any mass lesions and measures 0.2 cm in thickness. Sections of uterine wall do not reveal any mass lesions and measures 1.5cm in thickness. Right fallopian tube measures 7.0 cm in length and 0.5 cm in diameter. Fimbrial end is identified. Two nodules consisting predominantly adipose tissue also noted adjacent to the fallopian tube measuring 0.5 and 1.0 cm in greatest dimension. Sections reveal unremarkable cut surfaces. The left fallopian tube is similar appearance to right and measures 6.5 cm in length and 0.5 cm in diameter. Entry Level Accountant sections are submitted in ten cassettes as follows: 1 - anterior cervix, 2 - posterior cervix, 3 & 5 - anterior uterine wall, 6 & 8 - posterior uterine wall, entire endometrium is submitted, 9- right fallopian tube with yellow adipose tissue masses, entirely submitted, 10 - left fallopian tube. : 10/16/23 More sections are submitted as follows: 11 - Rest of the right fallopian tube, 12 - Rest of the left fallopian tube, 13 & 14 - More section of anterior cervix, 15 & 16 - More section of posterior cervix. / 10/19/23 TC:5 CPT: 44688
[2023-10-16] MEDS: Bupivacaine 0.25% 30 ML Vial (08:00)
--- NOTE | 2023-10-16 09:07 | OP.PCM_ITS ---
Problems Associated Problem List Diagnoses (1) Complex endometrial hyperplasia without atypia: Report of Operation Date of Procedure: 10/16/23 Pre-Operative Diagnosis: complex endometrial hyperplasia without atypia, morbid obesity Post-Operative Diagnosis: complex endometrial hyperplasia without atypia, morbid obesity Surgery/Procedure Performed:: total robotic hysterectomy, bilateral salpingectomy Description of Surgical Findings:: Findings: 9 cm size uterus, normal appearing ovaries and tubes. On exploration of the abdominal cavity the uterus, adnexa, bowel, and liver were found to be normal. Cystoscopy showed no evidence of leaking at approximately 250 cc of normal saline, positive ureteral orifices and jet flow are seen and no suture material was appreciated in the bladder. Surgeon: Wendy Keating knitted goods shaper: Goran Shields knitted goods shaper: Vaishali Harris Type of Anesthesia: General Anesthesiologist: Yann Galaviz Special Medications: pyridium preop Specimen's removed: uterus, fallopian tubes, cervix Drains: none Estimated Blood Loss (mL): 20cc Fluids Replaced: 600cc Description of Procedure: Reason for surgery: This is a 43-year-old G0 who presented to my office with history of heavy bleeding and was found to have complex endometrial hyperplasia without atypia on endometrial sampling. The planned procedure is for a robotic hysterectomy the risks benefits and alternatives were discussed with the patient the patient had a clear understanding of the procedure and a consent form was signed. Procedure: The patient was placed in the dorsal low lithotomy position and prepped and draped in the normal sterile fashion both abdominally and in the perineum. Her legs were placed in stirrups a Elam catheter was inserted into the urethra without difficulty. A weighted speculum was placed in the vagina and a single- tooth tenaculum was used to grasp the anterior lip of the cervix. An advincula uterine manipulator was inserted through the cervix without complication. It was then tied into place at the 2 and 10:00 locations on the cervix. Gloves were changed and attention was turned towards the abdomen. After Marcaine injection, a 8 mm incision was made in the umbilicus. An 5 mm trocar was inserted through the laparoscope then inserted into the abdomen under direct visualization using the laparoscope. Good abdominal placement was noted and no complications were appreciated. An air seal device was utilized to create pneumoperitoneum. At 12 cm lateral to the midline on the left and right sides 8 mm accessory ports were placed. Next a left upper quadrant 8 mm personnel assistant port site was placed. The patient was placed in steep Trendelenburg position. The robot was docked. The hysterectomy was initiated first by taking down the round ligament on each side using the vessel sealer device. The fallopian tubes were removed bilaterally by cauterizing and cutting the underlying mesosalpinx to the level of the cornual location on the uterus. The broad ligament was then and taken down using the vessel sealer device. Next the bladder flap was taken down without complication. This was done using monopolar cautery to the level of the cervical vaginal junction. After the bladder flap was created, uterine vessels were then isolated and cauterized using the vessel sealer device and EndoShears. At this point the uterine vessels were taken down further starting from the ascending branch, dissecting along the edges of the cervix to the level of the cervical vaginal junction with hemostasis appreciated. The cervical vaginal junction was then using monopolar cautery in a circumferential pattern across the superior aspect of the cervix. The specimen was delivered through the vagina and sent to pathology. The remaining vaginal cuff was then closed using a V lock suture. This was performed in a running technique. Excellent hemostasis was obtained and good closure was noted. Irrigation was then performed. All operative sites were noted to be hemostatic. A cystoscopy was performed with a 70 degree cystoscope through the urethra into the bladder without complication. The bladder was instilled with approximately 250 cc of normal saline. Intraoperative images were made. Ureteral orifices and jets were identified. No suture material was appreciated in the bladder. The bladder was then drained and cystoscope was removed. The abdominal cavity was again examined using the laparoscope after the robot was undocked. All operative sites were noted to be hemostatic. The trochars were removed under direct visualization without complication and pneumoperitoneum was reduced. At this point the skin was then closed using 4-0 Monocryl subcuticular stitch and sealed with surgical glue. The patient tolerated the procedure well sponge lap and needle counts were correct x2 the patient was taken to the recovery room in stable condition. Grafts/Implants Used: none Admit VTE Documentation VTE Present on Admission: Yes VTE Pharm Prophylaxis ordered?: No Multi Select Codes Urinary/Genital Urinary/Genital CPT Codes: 81757 Cystoscopy and 25479 TLH+BS/O <250gr uterus
[2023-10-16 09:21] VITALS: BP 125/86; BP 132/52; PULSE 98; RESP 16; TEMP 36.5; O2SAT 98
[2023-10-16 09:30] VITALS: BP 128/82; BP 132/52; PULSE 91; RESP 16; O2SAT 100
[2023-10-16 09:45] VITALS: BP 130/88; BP 132/52; PULSE 87; RESP 16; O2SAT 100
[2023-10-16 09:57] VITALS: BP 126/86; BP 132/52; PULSE 71; RESP 16; TEMP 36.1; O2SAT 100
[2023-10-16 10:29] LABS: Bedside Glucose 133 mg/dL (74-106)
[2023-10-16] MEDS: Oxycodone/Apap 5/325 Tablet PO (11:14)
[2023-10-16 11:41] VITALS: BP 118/78; BP 132/52; PULSE 74; RESP 16; TEMP 36.1; O2SAT 98
== END 2023-10-16 12:08 | disposition home or self-care (01) ==
LOC: SDC 05:33 → AC 05:34
PROVIDERS: Anesthesiology; PCP Family Medicine; Referring Provider Obstetrics & Gynecology; Visit Provider Obstetrics & Gynecology
PROC: 0UT90ZZ Resection of Uterus, Open Approach (ICD-10-PCS; CPT 58571; principal; 2023-10-16 07:10)
DX: N85.01 Benign endometrial hyperplasia (principal); E66.01 Morbid (severe) obesity due to excess calories; Z68.43 Body mass index [BMI] 50.0-59.9, adult; E11.9 Type 2 diabetes mellitus without complications; G89.29 Other chronic pain; Z79.84 Long term (current) use of oral hypoglycemic drugs; M54.9 Dorsalgia, unspecified; I10 Essential (primary) hypertension; E78.5 Hyperlipidemia, unspecified; N72 Inflammatory disease of cervix uteri; D28.2 Benign neoplasm of uterine tubes and ligaments
CPT/HCPCS: 58571; 00840; 52000; 36415; 80053; 81025; 82962; 83036; 83735; 86850; 86900; 86901; 88307; 93005; J7120; J2405; J3475

== ENCOUNTER → 2024-03-17 | Outpatient (CLI) | payer BC, SELFPAY ==
[2024-03-17 10:53] LABS: Microalbumin,Random Urine < 5.0 mg/L (NO RANGE EST.)
[2024-03-17 11:16] LABS: AST(SGOT) 15 U/L (15-37); Alanine Aminotransfer ALT/SGPT 24 U/L (13-56); Albumin, Serum 3.6 g/dL (3.2-5.0); Alkaline Phosphatase 78 U/L (45-117); Anion Gap 5 (5-15); BUN 15 mg/dL (7-18); BUN/Creat Ratio 15.3 RATIO (10-20); Calcium,Total 9.2 mg/dL (8.5-10.1); Chloride 110 mmol/L (98-107); Cholesterol 127 mg/dL (200); Creatinine, Serum 0.98 mg/dL (0.55-1.02); EST Glomerular Filtration Rate 65 mL/min (>60); Est Glom Filt Rate - Afr Amer 79 mL/min (>60); Globulin 3.7 g/dL (2.2-4.2); Glucose 98 mg/dL (74-106); High Density Lipoprotein 42 mg/dL; Potassium 4.6 mmol/L (3.5-5.1); Protein, Total 7.3 g/dL (6.4-8.2); Sodium Level 138 mmol/L (136-145); Triglycerides 127 mg/dL; Very Low Density Lipoprotein 25 mg/dL (5-40)
== END | disposition home or self-care (01) ==
LOC: MFPLAB 09:04
PROVIDERS: PCP Family Medicine; Visit Provider Family Medicine
DX: E66.9 Obesity, unspecified (principal); E11.9 Type 2 diabetes mellitus without complications
CPT/HCPCS: 36415; 80053; 80061; 82043; 82570; 84443

== ENCOUNTER → 2024-09-01 | Outpatient (CLI) | payer BC, SELFPAY ==
--- NOTE | 2024-09-01 09:46 | BI_ITS ---
PROCEDURE: SCRN MAMM (CAD)W/CHARISSA BILAT REASON FOR EXAM: F, Age 44 y/o, no family history. Routine follow-up. TECHNIQUE: Bilateral screening digital breast tomosynthesis with 2D and 3D images. Computer aided detection. COMPARISON: Prior exam(s) dating back to August 31, 2023.. FINDINGS: The breasts are almost entirely fatty. Stable small bilateral axillary lymph nodes. No suspicious masses, areas of developing architectural distortion, or suspicious calcifications. BI/SCRN MAMM (CAD)W/CHARISSA BILAT IMPRESSION: BI-RADS 2: BENIGN. RECOMMEND ANNUAL MAMMOGRAPHIC SCREENING. Follow-up code: Routine Follow-up The patient will be notified of the results by letter. Reading Location: [id number]
== END | disposition home or self-care (01) ==
LOC: OPBI 09:44
PROVIDERS: PCP Family Medicine; Referring Provider Family Medicine; Visit Provider Family Medicine
DX: Z12.31 Encounter for screening mammogram for malignant neoplasm of breast (principal)
CPT/HCPCS: 77063; 77067

== ENCOUNTER → 2024-09-22 | Outpatient (CLI) | payer BC, SELFPAY ==
[2024-09-22 11:28] LABS: Anion Gap 9 (5-15); BUN 15 mg/dL (4-19); BUN/Creat Ratio 20.7 RATIO (10-20); Calcium,Total 9.2 mg/dL (7.6-11.0); Carbon Dioxide 21.8 mmol/L (21.0-32.0); Chloride 107 mmol/L (98-108); Creatinine, Serum 0.72 mg/dL (0.70-1.20); EST Glomerular Filtration Rate 104 (>60); Glucose 103 mg/dL (70-99); Potassium 4.6 mmol/L (3.3-5.1); Sodium Level 138 mmol/L (133-145)
[2024-09-22 12:04] LABS: Cholesterol 134 mg/dL (<=200); High Density Lipoprotein 40 mg/dL; Low Density Lipoprotein Calc. 71 mg/dL; Triglycerides 114 mg/dL; Very Low Density Lipoprotein 23 mg/dL (5-40); cholesterol:hdl ratio screen 3.35
== END | disposition home or self-care (01) ==
LOC: MFPLAB 09:19
PROVIDERS: PCP Family Medicine; Referring Provider Family Medicine; Visit Provider Family Medicine
DX: R03.0 Elevated blood-pressure reading, without diagnosis of hypertension (principal)
CPT/HCPCS: 36415; 80048; 80061

== ENCOUNTER → 2025-03-09 | Outpatient (CLI) | payer BC, SELFPAY ==
[2025-03-09 11:24] LABS: AST(SGOT) 17 U/L (<=31); Alanine Aminotransfer ALT/SGPT 17 U/L (<=34); Albumin, Serum 3.9 g/dL (3.5-5.0); Alkaline Phosphatase 73 U/L (35-104); Anion Gap 10 (5-15); BUN 12 mg/dL (4-19); BUN/Creat Ratio 16.2 RATIO (10-20); Calcium,Total 9.1 mg/dL (7.6-11.0); Carbon Dioxide 21.4 mmol/L (21.0-32.0); Chloride 105 mmol/L (98-108); Cholesterol 123 mg/dL (<=200); Globulin 3.0 g/dL (2.2-4.2); Glucose 138 mg/dL (70-99); Low Density Lipoprotein Calc. 64 mg/dL; Potassium 4.7 mmol/L (3.3-5.1); Triglycerides 91 mg/dL; Very Low Density Lipoprotein 18 mg/dL (5-40); cholesterol:hdl ratio screen 3.00
[2025-03-09 11:29] LABS: Creatinine, Urine (random) 96.10 mg/dL (28.00-217.00); Microalbumin,Random Urine < 12.0 mg/L (<20 mg/L)
== END | disposition home or self-care (01) ==
LOC: MFPLAB 08:31
PROVIDERS: PCP Family Medicine; Visit Provider Family Medicine
DX: E11.9 Type 2 diabetes mellitus without complications (principal)
CPT/HCPCS: 36415; 80053; 80061; 82043; 82570